=== PATIENT | female | born 1960 | race Two or more races ===

== ENCOUNTER 2024-10-10 12:20 | Inpatient (IN) | payer MEDICAID, OTHER ==
[~2024-10-10] VITALS: Ht 160 cm; Wt 73.4 kg
--- NOTE | 2024-10-10 12:29 | ED.PDOC ---
SOB-HPI HPI Comments 64 y.o female with PMHx of breast cancer and right arm DVT, presents to the ED via EMS for a chief complaint of SOB started started 4 days ago but worsened today. Patient was seen at [facility] [place] recently, was admitted for 12 days due to pleural effusion, had a Thoracentesis, had 2 drainages placed in discharged 2 days ago. Patient reports not feeling better. EMS reports patient's SPO2 read 85% on 4 liters home oxygen, placed her on non rebreather. Patient denies any chest pain, fever, chills, nausea or vomiting. Time Seen by MD: 12:20 Reviewed notes: Nurses Notes, Job Interviewer Notes, Medications, Allergies Information Source: Patient, Emergency Med Personnel Mode of Arrival: EMS Severity: Moderate Timing: Days (4) Duration: Since onset History of: DVT/PE (right arm ) Modifying Factors: Nothing Associated Signs and Symptoms: None Past Medical History PAST MEDICAL HISTORY: Cancer (breast ) Past Medical History (Other): pleura effusion and right arm DVT Surgical History: (3), Tubal Ligation Surgical History (Other): Thoracentesis INSURANCE BROKER History: No Pertinent INSURANCE BROKER History Family History Family History: Unknown Social History Smoker: Non-Smoker Alcohol: Denies ETOH Use Drugs: Denies Drug Use Lives In: Home Constitutional: denies: chills, diaphoresis, fatigue, fever, malaise, sweats, weakness, others EENTM: denies: blurred vision, double vision, ear bleeding, ear discharge, ear drainage, ear pain, ear ringing, eye pain, eye redness, hearing loss, mouth pain, mouth swelling, nasal discharge, nose bleeding, nose congestion, nose pain, photophobia, tearing, throat pain, throat swelling, voice changes, others Respiratory: reports: SOB at rest, shortness of breath, SOB with excertion; denies: cough, hemoptysis, orthopnea, stridor, wheezing, others Cardiovascular: denies: chest pain, dizzy spells, diaphoresis, Dyspnea on exertion, edema, irregular heart beat, left arm pain, lightheadedness, palpitations, PND, syncope, others Gastrointestinal: denies: abdomen distended, abdominal pain, blood streaked bowels, constipated, diarrhea, dysphagia, difficulty swallowing, hematemesis, melena, nausea, poor appetite, poor fluid intake, rectal bleeding, rectal pain, vomiting, others Genitourinary: denies: abnormal vagina bleeding, burning, dyspareunia, dysuria, flank pain, frequency, hematuria, incontinence, pain, , vagina disc harge, urgency, others Neurological: denies: dizziness, fainting, headache, left sided numbness, left sided weakness, numbness, paresthesia, pre-existing deficit, right sided numbness, right sided weakness, seizure, speech problems, tingling, tremors, weakness, others Musculoskeletal: denies: back pain, gout, joint pain, joint swelling, muscle pain, muscle stiffness, neck pain, others Integumetry: denies: bruises, change in color, change in hair/nails, dryness, laceration, lesions, lumps, rash, wounds, others Allergic/Immunocompromised: denies: Difficulty Healing, Frequent Infections, Hives, Itching, others Hematologic/Lymphatic: denies: anemia, blood clots, easy bleeding, easy bruising, swollen glands, others Endocrine: denies: excessive hunger, excessive sweating, excessive thirst, excessive urination, flushing, intolerance to cold, intolerance to heat, unexplained weight gain, unexplained weight loss, others Psychiatric: denies: anxiety, bipolar disorder, depression, hopeless, panic disorder, schizophrenia, sleepless, suicidal, others All Other Systems: Reviewed and Negative Physical Exam General Appearance: Moderate Distress HEENT: Normal ENT Inspection, Pharynx Normal, TMs Normal Neck: Full Range of Motion, Non-Tender, Normal, Normal Inspection Respiratory: Accessory Muscle Use, Chest Non-Tender, Decreased Breath Sounds, Lungs Clear, Respiratory Distress Cardiovascular: No Edema, No JVD, No Murmur, No Gallop, Normal Peripheral Pulses, Regular Rate/Rhythm Breast Exam: Deferred Gastrointestinal: No Organomegaly, Non Tender, No Pulsatile Mass, Normal Bowel Sounds, Soft Genitalia: Deferred Pelvic: Deferred Rectal: Deferred Extremities: No calf tenderness, Normal capillary refill, Normal inspection, Normal range of motion, Non-tender, No pedal edema Musculoskeletal : Apperance: Normal Neurologic: Alert, environmental management specialist II-XII nml as Tested, No Motor Deficits, Normal Affect, Normal Mood, No Sensory Deficits Cerebellar Function: Normal Reflexes: Normal Skin: Dry, Normal Color, Warm Lymphatic: No Adenopathy EKG EKG : Pulse Rate (adult): 97 [place]: Normal Cardiac Rhythm: NSR ST: Normal Was a procedure done? Was a procedure done?: No Differential Dx Differential Diagnosis: Asthma, Bronchitis, COPD, Pneumonia, Pulmonary Embolism, Respiratory Distress, URI X-Ray, Labs, Meds, VS Vital Signs Date Time Temp Pulse Resp B/P (MAP) Pulse Ox O2 Delivery O2 Flow Rate FiO2 10/10/24 16:21 107 18 122/70 (87) 92 10/10/24 13:40 97.9 91 20 95/49 (64) 100 97.9 10/10/24 13:29 Nasal Cannula* 3 32 10/10/24 12:48 97 10/10/24 12:40 97.9 90 40 94/47 (63) 100 10/10/24 12:36 97 Lab Test 10/10/24 14:01 Range/Units White Blood Count 6.4 4.4-10.8 10^3/uL Red Blood Count 4.09 4.0-5.20 10^6/uL Hemoglobin 11.4 L 12.2-16.2 g/dL Hematocrit 36.7 36.0-46.0 % Mean Corpuscular Volume 89.7 80.0-100.0 fL Mean Corpuscular Hemoglobin 27.9 L 28.0-32.0 pg Mean Corpuscular Hemoglobin Concent 31.1 L 32.0-36.0 g/dL Red Cell Distribution Width 15.7 H 11.8-14.3 % Platelet Count 336 140-450 10^3/uL Mean Platelet Volume 8.0 6.9-10.8 fL Neutrophils (%) (Auto) 70.5 37.0-80.0 % Lymphocytes (%) (Auto) 14.0 10.0-50.0 % Monocytes (%) (Auto) 14.1 H 0.0-12.0 % Eosinophils (%) (Auto) 0.7 0.0-7.0 % Basophils (%) (Auto) 0.7 0.0-2.0 % Neutrophils # (Auto) 4.5 1.6-8.6 10 ^3/uL Lymphocytes # (Auto) 0.9 0.4-5.4 10 ^3/uL Monocytes # (Auto) 0.9 0-1.3 10 ^3/uL Eosinophils # (Auto) 0 0-0.8 10 ^3/uL Basophils # (Auto) 0 0-0.2 10 ^3/uL Nucleated Red Blood Cells 0.1 % Sodium Level 143 136-145 mmol/L Potassium Level 4.2 3.5-5.1 mmol/L Chloride Level 106 98-107 mmol/L Carbon Dioxide Level 25 20-31 mmol/L Anion Gap 12 5-15 Blood Urea Nitrogen 23 9-23 mg/dL Creatinine 0.62 0.550-1.02 mg/dL Glomerular Filtration Rate Calc 100 >90 mL/min BUN/Creatinine Ratio 37.1 H 10.0-20.0 Serum Glucose 98 74-106 mg/dL Calcium Level 9.8 8.7-10.4 mg/dL B-Type Natriuretic Peptide 82.79 0-100 pg/mL CHEST RADIOGRAPH IMPRESSION: Multifocal airspace disease. The patient came into the emergency department's with a breathing treatment The CBC is within normal limits The chemistry panel is within normal limits The BNP is within normal limits. At this time, the patient was being admitted Images Reviewed?: Images reviewed and evaluated by me Time of 1ST Reevaluation: 12:24 Reevaluation 1ST: Unchanged Patient Education/Counseling: Diagnosis, Treatment, Prognosis Family Education/Counseling: No Family Present Departure 1 Departure Time of Disposition: 16:25 Impression: Primary Impression: Acute respiratory failure Qualified Codes: J96.01 - Acute respiratory failure with hypoxia Additional Impression: Breast cancer Qualified Codes: C50.919 - Malignant neoplasm of unspecified site of unspecified female breast Disposition: ADMITTED INPATIENT Admit to: [facility] Condition: Fair Critical Care Note Critical Care Time?: Yes (35 min-critical care time only) Stability Stability form required: Yes Unstable for transfer: Telemetry monitoring (Telemetry monitoring required), ED Physician Assesment (Clinical assesment) Heart Score Heart Score: Heart Score Response (Comments) Value History N/A 0 EKG N/A 0 Age N/A 0 Risk Factors N/A 0 Troponin N/A 0 Total 0 I personally scribed for JET GIBBONS MD ([email or web address]) on 10/10/24 at 12:29. Electronically submitted by Rosalva Kirkpatrick ([facility] I personally scribed for JET GIBBONS MD ([email or web address]) on 10/10/24 at 15:52. Electronically submitted by Rosalva Kirkpatrick ([facility]). JET GIBBONS MD Oct 10, 2024 12:29
--- NOTE | 2024-10-10 12:38 | ECG ---
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
--- NOTE | 2024-10-10 12:53 | DVH ---
CHEST RADIOGRAPH Indication: sob Technique: Single frontal view of the chest was obtained COMPARISON: None FINDINGS: Lines and Tubes: Bilateral chest tubes in-situ. Lungs: Multifocal airspace disease. Pleura: Small bilateral pleural effusions. No pneumothorax. Cardiomediastinal contours: Unremarkable Bones: Unremarkable IMPRESSION: Multifocal airspace disease.
[2024-10-10 14:31] LABS: Basophils # (auto) 0 10 ^3/uL (0-0.2); Basophils % (auto) 0.7 % (0.0-2.0); Eosinophils # (auto) 0 10 ^3/uL (0-0.8); Eosinophils % (auto) 0.7 % (0.0-7.0); Hematocrit 36.7 % (36.0-46.0); Hemoglobin 11.4 g/dL (12.2-16.2); Lymphocytes # (auto) 0.9 10 ^3/uL (0.4-5.4); Mean Corpuscular Hemoglobin 27.9 pg (28.0-32.0); Mean Corpuscular Hgb Conc. 31.1 g/dL (32.0-36.0); Mean Corpuscular Volume 89.7 fL (80.0-100.0); Monocytes # (auto) 0.9 10 ^3/uL (0-1.3); Monocytes % (auto) 14.1 % (0.0-12.0); Neutrophils # (auto) 4.5 10 ^3/uL (1.6-8.6); Neutrophils % (auto) 70.5 % (37.0-80.0); Nucleated Red Blood Cells % 0.1 %; Platelet Count (auto) 336 10^3/uL (140-450); Red Blood Cells 4.09 10^6/uL (4.0-5.20); Red Cell Distribution Width 15.7 % (11.8-14.3); White Blood Cell 6.4 10^3/uL (4.4-10.8)
[2024-10-10 14:39] LABS: Chloride 106 mmol/L (98-107); Potassium 4.2 mmol/L (3.5-5.1); Sodium 143 mmol/L (136-145)
[2024-10-10 14:40] LABS: Anion Gap 12 (5-15); Calcium 9.8 mg/dL (8.7-10.4); Carbon Dioxide 25 mmol/L (20-31)
[2024-10-10 14:45] LABS: BUN/Creatinine Ratio 37.1 (10.0-20.0); Blood Urea Nitrogen 23 mg/dL (9-23); Glucose 98 mg/dL (74-106)
[2024-10-10] MEDS ORDERED: MORPHINE SULFATE INJ 2 MG/ml SYRG IV PRN ×2 (17:30)
[2024-10-10] MEDS ORDERED: HYDROcodone-ACET 5/325MG TAB PO PRN (17:30)
[2024-10-10] MEDS ORDERED: NITROGLYCERIN 0.4 MG SL TAB SL PRN (17:30)
[2024-10-10] MEDS ORDERED: DOCUSATE SOD 100 MG CAP PO PRN (17:30)
[2024-10-10] MEDS ORDERED: MIDO10TA10 PO (17:41)
[2024-10-10] MEDS ORDERED: MET25T PO (17:41)
[2024-10-10] MEDS ORDERED: APIX5TAB PO (17:41)
[2024-10-10] MEDS ORDERED: ASPI-628 PO (17:41)
[2024-10-10] MEDS ORDERED: RIBO200T PO (17:41)
[2024-10-10] MEDS: cefTRIAXone 1GM/50ML D5W 50 ML IV ONE (17:54)
[2024-10-10] MEDS: SODIUM CHLORIDE 0.9% 1,000 ML IV ONE (17:56)
--- NOTE | 2024-10-10 17:59 | DVHHP2 ---
History of Present Illness Reason for Visit: Shortness of breath History of Present Illness Aleisha Higgins is a 64-year-old female with past medical history of metastatic breast cancer who is currently undergoing treatment. Patient was hospitalized at [place] for 12 days, she was discharged home on Thursday10/08/2024. While there she had bilateral pleural effusions. She underwent bilateral thoracentesis, the fluid reaccumulated so bilateral pig tail drains were placed. She states after the first thoracentesis she felt better, but after the drains were placed she still feels short of breath. While in the hospital she was diagnosed with a DVT in her right arm and started on blood thinners. She was dis charged home with midodrine and home oxygen. Patient under went radiation therapy to her right breast that has left her scared. The breast cancer has spread to her left breast and bones. She is continuing treatment through Dr. Riaz Garces with oral medications. She came in today due to increasing shortness of breath. She states she was previously able to ambulate to the bathroom, and these past couple of days she becomes so short of breath that she can't make it even with her home oxygen. When EMS arrived her oxygen sats were in the 80's with her oxygen on. Cardiovascular: Other (Tachycardia and hypotension) Heme/Onc: Cancer (metastatic breast cancer), Other (DVT) Endocrine: Hyperthyroidism Past Surgical History: (x 3), Tubal Ligation Smoke: No ALCOHOL: none Drugs: None Lives: with Family Domestic Violence: Neg Review of Systems Constitutional: No: Fever, Chills, Sweats, Weakness, Malaise, Other Eyes: No: Pain, Vision change, Conjunctivae inflammation, Eyelid inflammation, Other, Redness ENT: No: Ear pain, Ear discharge, Nose pain, Nose discharge, Nose congestion, Mouth pain, Mouth swelling, Throat pain, Throat swelling, Other Respiratory: Shortness of breath, SOB with excertion, Wheezing; No: Cough, Dry, Hemoptysis, Pleuritic Pain, Sputum, Wheezing, Other Cardiovascular: No: Chest Pain, Palpitations, Orthopnea, Paroxysmal Noc. Dyspnea, Edema, Lt Headedness, Other Gastrointestinal: No: Nausea, Vomiting, Abdominal Pain, Diarrhea, Constipation, Melena, Hematochezia, Other Genitourinary: No Dysuria, No Frequency, No Incontinence, No Hematuria, No Retention, No Other Musculoskeletal: No: other, neck pain, shoulder pain, arm pain, back pain, hand pain, leg pain, foot pain Skin: No: Rash, Lesions, Jaundice, Bruising, Other Neurological: No: Weakness, Numbness, Incoordination, Change in speech, Confu jermaine, Seizures, Other Allergies: Coded Allergies: NO KNOWN ALLERGIES (Unverified , 10/10/24) Exam Vital Signs Vital Signs Date Time Temp Pulse Resp B/P (MAP) Pulse Ox O2 Delivery O2 Flow Rate FiO2 10/10/24 16:21 107 18 122/70 (87) 92 10/10/24 13:40 97.9 97.9 10/10/24 13:29 Nasal Cannula* 3 32 General Appearance: Alert, Oriented X3, moderate distress HEENT: Atraumatic, PERRLA Respiratory: Other (Diminished breath sounds) Cardiovascular: Regular rate, Normal S1, Normal S2 Abdominal: Normal bowel sounds, Soft, No tenderness, No hepatospenomegaly Extremities: No clubbing, No cyanosis, No edema, Normal pulses Skin: No rashes, No breakdown, No significant lesion Neuro: Normal speech, Normal tone Psych/Mental Status: Mental status NL, Mood NL Labs/Xrays Labs Test 10/10/24 14:01 Range/Units White Blood Count 6.4 4.4-10.8 10^3/uL Red Blood Count 4.09 4.0-5.20 10^6/uL Hemoglobin 11.4 L 12.2-16.2 g/dL Hematocrit 36.7 36.0-46.0 % Mean Corpuscular Volume 89.7 80.0-100.0 fL Mean Corpuscular Hemoglobin 27.9 L 28.0-32.0 pg Mean Corpuscular Hemoglobin Concent 31.1 L 32.0-36.0 g/dL Red Cell Distribution Width 15.7 H 11.8-14.3 % Platelet Count 336 140-450 10^3/uL Mean Platelet Volume 8.0 6.9-10.8 fL Neutrophils (%) (Auto) 70.5 37.0-80.0 % Lymphocytes (%) (Auto) 14.0 10.0-50.0 % Monocytes (%) (Auto) 14.1 H 0.0-12.0 % Eosinophils (%) (Auto) 0.7 0.0-7.0 % Basophils (%) (Auto) 0.7 0.0-2.0 % Neutrophils # (Auto) 4.5 1.6-8.6 10 ^3/uL Lymphocytes # (Auto) 0.9 0.4-5.4 10 ^3/uL Monocytes # (Auto) 0.9 0-1.3 10 ^3/uL Eosinophils # (Auto) 0 0-0.8 10 ^3/uL Basophils # (Auto) 0 0-0.2 10 ^3/uL Nucleated Red Blood Cells 0.1 % Sodium Level 143 136-145 mmol/L Potassium Level 4.2 3.5-5.1 mmol/L Chloride Level 106 98-107 mmol/L Carbon Dioxide Level 25 20-31 mmol/L Anion Gap 12 5-15 Blood Urea Nitrogen 23 9-23 mg/dL Creatinine 0.62 0.550-1.02 mg/dL Glomerular Filtration Rate Calc 100 >90 mL/min BUN/Creatinine Ratio 37.1 H 10.0-20.0 Serum Glucose 98 74-106 mg/dL Calcium Level 9.8 8.7-10.4 mg/dL B-Type Natriuretic Peptide 82.79 0-100 pg/mL CHEST RADIOGRAPH FINDINGS: Lines and Tubes: Bilateral chest tubes in-situ. Lungs: Multifocal airspace disease. Pleura: Small bilateral pleural effusions. No pneumothorax. Cardiomediastinal contours: Unremarkable Bones: Unremarkable IMPRESSION: Multifocal airspace disease. Assessment/Plan Assessment/Plan Assessment: Acute respiratory failure, Possible pneumonia, Tachycardia, Hypotension, Bilateral pleural effusions, Bilateral chest tubes, Metastatic Breast cancer, Plan: Admit to Tele, Radiology consult, IV antibiotics, IV hydration, Influenza A&B swab, Supplemental oxygen as needed, Breathing treatments as needed, Home medications reconciled, Plan discussed with: Patient My Orders Orders - ANDRE OLSON Procedure Category Date Status Time Admit ADMIT 10/10/24 Verified 17:23 Code Status CODE 10/10/24 Verified 17:23 2 Gm Sodium Diet DIET 10/10/24 Verified Dinner Hydrocodone-Acet PHA 10/10/24 Verified 5/325mg Tab ([place] 17:30 Ondansetron Hcl PHA 10/10/24 Verified (Zofran) 17:30 Docusate Sodium PHA 10/10/24 Verified Capsule ([place] 17:30 Fall Risk Precautions СВЕТЛАНА 10/10/[address] 17:23 Complete Blood Count LAB 10/11/24 Verified 04:00 Comprehensive LAB 10/11/24 Verified Metabolic Panel 04:00 Condition: Critical СВЕТЛАНА 10/10/24 Verified 17:23 Acetaminophen Tablet PHA 10/10/24 Verified (Tylenol Tablet) 17:30 Morphine Sulfate PHA 10/10/24 Verified Injection 17:30 Date of Service: Oct 10, 2024 Billing Provider: ANDRE OLSON Common Visit Codes: [id number] INP/OBS CARE (HIGH) ANDRE OLSON Oct 10, 2024 17:59
[2024-10-10 18:21] VITALS: PULSE 111; RESP 20; O2SAT 93
[2024-10-10] MEDS: ALBUTEROL SULF 2.5 MG/0.5ML(0.5%) NEB SOLN NEB PRN (18:21)
[2024-10-10] MEDS: IPRATROPIUM BROM 0.5 MG/2.5ML INH SOL NEB PRN (18:21)
[2024-10-10 18:27] VITALS: PULSE 111; RESP 20; O2SAT 96
[2024-10-10 19:56] VITALS: BP 122/70; PULSE 112; RESP 20; TEMP 97.9; O2SAT 93
[2024-10-10 20:31] LABS: Rapid Influenza A Negative (Negative); Rapid Influenza B Negative (Negative)
[2024-10-10 20:35] LABS: Urine Bacteria FEW /hpf (None Seen); Urine Blood Negative /uL (Negative); Urine Clarity Clear (Clear); Urine Color Yellow (Yellow); Urine Mucus FEW (None Seen); Urine Protein, UAD TRACE (Negative); Urine Specific Gravity 1.029 (1.001-1.035); Urine Squamous Epithelial Cell FEW /hpf (<5); Urine Urobilinogen Normal (Negative); Urine WBC 6 /HPF (0-5); Urine pH 5.5 (5.0-9.0)
[2024-10-10] MEDS: MIDODRINE HCL 10 MG TAB PO SCH (22:00)
[2024-10-10] MEDS: APIXABAN 5 MG TAB PO SCH (22:57)
[2024-10-10] MEDS: ONDANSETRON HCL 4 MG/2 ML VIAL IV PRN (22:58)
[2024-10-10] MEDS: METOPROLOL TARTRATE 25 MG TAB PO SCH (22:58)
[2024-10-10 23:11] VITALS: BP 153/89; PULSE 114; RESP 28; TEMP 97.7; O2SAT 95
[2024-10-11] VITALS (14 sets, daily range): BP systolic 103–141; BP diastolic 63–83; PULSE 95–113; RESP 16–19; TEMP 97.2–97.8; O2SAT 95–100
[2024-10-11 06:37] LABS: Basophils # (auto) 0.1 10 ^3/uL (0-0.2); Eosinophils # (auto) 0.1 10 ^3/uL (0-0.8); Eosinophils % (auto) 1.5 % (0.0-7.0); Hematocrit 31.7 % (36.0-46.0); Hemoglobin 10.3 g/dL (12.2-16.2); Lymphocytes # (auto) 0.5 10 ^3/uL (0.4-5.4); Lymphocytes % (auto) 9.5 % (10.0-50.0); Mean Corpuscular Hemoglobin 28.4 pg (28.0-32.0); Mean Corpuscular Hgb Conc. 32.4 g/dL (32.0-36.0); Mean Corpuscular Volume 87.5 fL (80.0-100.0); Monocytes # (auto) 0.9 10 ^3/uL (0-1.3); Monocytes % (auto) 16.3 % (0.0-12.0); Neutrophils # (auto) 3.9 10 ^3/uL (1.6-8.6); Neutrophils % (auto) 71.7 % (37.0-80.0); Nucleated Red Blood Cells % 0.2 %; Platelet Count (auto) 322 10^3/uL (140-450); Red Blood Cells 3.63 10^6/uL (4.0-5.20); Red Cell Distribution Width 15.5 % (11.8-14.3); White Blood Cell 5.5 10^3/uL (4.4-10.8)
[2024-10-11 06:52] LABS: Alanine Aminotransferase < 9 U/L (7-40); Albumin 3.6 g/dL (3.2-4.8); Alkaline Phosphatase 55 U/L (46-116); Anion Gap 12 (5-15); Aspartate Aminotransferase 30 U/L (13-40); BUN/Creatinine Ratio 35.5 (10.0-20.0); Bilirubin, Total 0.6 mg/dL (0.2-1.0); Blood Urea Nitrogen 22 mg/dL (9-23); Carbon Dioxide 25 mmol/L (20-31); Chloride 104 mmol/L (98-107); Glucose 100 mg/dL (74-106); Potassium 4.2 mmol/L (3.5-5.1); Sodium 141 mmol/L (136-145); Total Protein 6.3 g/dL (5.7-8.2)
--- NOTE | 2024-10-11 07:42 | DVH ---
CLINICAL HISTORY: 64 years old, Female; FLUID CHECK FOR POSSIBLE THORACENTESIS. TECHNIQUE: Grayscale sonographic imaging of the chest was performed to evaluate for pleural effusion s. COMPARISON: None FINDINGS: Bilateral pleural effusions are seen on ultrasound. IMPRESSION: Bilateral pleural effusions are seen on ultrasound.
[2024-10-11] MEDS: cefTRIAXone 1GM/50ML D5W 50 ML IV SCH (08:57)
[2024-10-11] MEDS: ACETAMINOPHEN 325 MG TAB PO PRN (08:58)
[2024-10-11] MEDS: ASPirin-EC 81 mg tab PO SCH (08:58)
[2024-10-11] MEDS: RIBOCICLIB SUCCINATE PO SCH (09:00)
--- NOTE | 2024-10-11 09:24 | DVHPNRES ---
Progress Note Date Seen: Oct 11, 2024 Resident Creating Document: FREDI SEO RESIDENT Medical Necessity Reason Pt with a Central, PICC or Fol: No Subjective Review of Systems Aleisha Higgins is a 64-year-old female with past medical history of metastatic breast cancer who is currently undergoing treatment. Patient was hospitalized at [place] for 12 days, she was discharged home on Thursday10/08/2024. While there she had bilateral pleural effusions. She underwent bilateral thoracentesis, the fluid reaccumulated so bilateral pig tail drains were placed. She states after the first thoracentesis she felt better, but after the drains were placed she still feels short of breath. While in the hospital she was diagnosed with a DVT in her right arm and started on blood thinners. She was discharged home with midodrine and home oxygen. Patient under went radiation therapy to her right breast and the breast cancer has spread to her left breast and bones. She is continuing treatment through Dr. Riaz Garces with oral medications. She came today due to increasing shortness of breath. She states she was previously able to ambulate to the bathroom, and these past couple of days she becomes so short of breath that she can't make it even with her home oxygen. When EMS arrived her oxygen sats were in the 80's with her oxygen on. Patient was seen and examined on the bedside. alert oriented x3 and on 3 L oxygen saturation 98 %. complaint of shortness of breath and cough room for.No other active complaint. chest x-ray and ultrasound of the chest both revealed bilateral pleural effusion. Pleurex drainage was done by bedside nurse and 900 mL fluid removed from the left side. Constitutional: No: Fever, Chills, Sweats, Weakness, Malaise, Other Eyes: No: Pain, Vision change, Conjunctivae inflammation, Eyelid inflammation, Other, Redness ENT: No: Ear pain, Ear discharge, Nose pain, Nose discharge, Nose congestion, Mouth pain, Mouth swelling, Throat pain, Throat swelling, Other Respiratory: Shortness of breath, Cough, No Dry,Wheezing, Hemoptysis, Pleuritic Pain, Sputum, Wheezing, Other Cardiovascular: No: Chest Pain, Palpitations, Orthopnea, Paroxysmal Noc. Dyspnea, Edema, Lt Headedness, Other Gastrointestinal: No: Nausea, Vomiting, Abdominal Pain, Diarrhea, Constipation, Melena, Hematochezia, Other Musculoskeletal: No: other, neck pain, shoulder pain, arm pain, back pain, hand pain, leg pain, foot pain Neurological:; No: Weakness, Numbness, Incoordination, Change in speech, Confusion, Seizures Objective vital signs Vital Sign Date Time Temp Pulse Resp B/P (MAP) Pulse Ox O2 Delivery O2 Flow Rate FiO2 10/11/24 09:00 97.2 103 16 113/68 (83) 96 97.2 10/11/24 06:30 Nasal Cannula 3.0 10/11/24 06:30 32 Total Intake and Output 10/10/24 10/10/24 10/11/24 15:00 23:00 07:00 Intake Total 50 ml 200 ml Balance 50 ml 200 ml medications Current Medications Medications Dose Ordered Sig/Richard Route Start Time Stop Time Status Last Admin Dose Admin Acetaminophen/ Hydrocodone Bitart 1 tab Q4HP PRN PO 10/10/24 17:30 Ondansetron HCl 4 mg Q4HP PRN IV 10/10/24 17:30 10/11/24 04:16 4 MG Docusate Sodium 100 mg BIDPRN PRN PO 10/10/24 17:30 Acetaminophen 650 mg Q6HP PRN PO 10/10/24 17:30 10/11/24 08:58 650 MG Morphine Sulfate 2 mg Q4HPRN PRN IV 10/10/24 17:30 Nitroglycerin 0.4 mg Q5MINP PRN SL 10/10/24 17:30 Morphine Sulfate 2 mg Q30M PRN IV 10/10/24 17:30 Ceftriaxone Sodium 50 ml @ 100 mls/hr DAILY@09 IV 10/11/24 09:00 10/11/24 08:57 100 MLS/HR Apixaban 5 mg BID PO 10/10/24 22:00 10/11/24 08:59 5 MG Aspirin 81 mg DAILY PO 10/11/24 10:00 10/11/24 08:58 81 MG Metoprolol Tartrate 25 mg BID PO 10/10/24 22:00 10/11/24 09:00 25 MG Midodrine 10 mg TID PO 10/10/24 22:00 Patient Own Medication 400 mg DAILY PO 10/11/24 10:00 Ipratropium [place] 0.5 mg Q4HPRN PRN NEB 10/10/24 18:00 10/10/24 18:21 0.5 MG Albuterol 2.5 mg Q4HPRN PRN NEB 10/10/24 18:00 10/10/24 18:21 2.5 MG Examination Physical examination: General Appearance: Alert, Oriented X3, Cooperative, moderate distress HEENT: Atraumatic, PERRLA, EOMI, Mucous membrane moist/pink Respiratory: Decreased breath sound bilaterally. Cardiovascular: Regular rate, Normal S1, Normal S2, No murmurs, no chest wall tenderness Abdominal: Normal bowel sounds, Soft, No tenderness, No hepatospenomegaly, No masses Extremities: No clubbing, No cyanosis, No edema, Normal pulses, No tenderness/swelling Skin: Bilateral bianca d orange and black thickening of the chest skin due to radiation dermatitis, No rashes, No breakdown, No significant lesion Neuro: Normal gait, Normal speech, Strength at 5/5 X4 ext, Normal tone, Sensation intact, grossly intact cranial nerves. Psych/Mental Status: Mental status NL, Mood NL laboratory and microbiology Laboratory Tests 10/11/24 05:54 Test 10/11/24 05:54 Range/Units Serum Glucose 100 74-106 mg/dL Labs and/or images reviewed: Labs reviewed by me, Image(s) reviewed by me Problem List/Assessment/Plan Problem List/Assessment/Plan Assessment and plan: # Acute hypoxic respiratory failure likely due to bilateral malignant pleural effusion # Possible Gram-positive/ Gram-negative community-acquired pneumonia # Metastastatic breast cancer with possible metastasis to lung # Recurrent bilateral malignant pleural effusion, s/p bilateral pig tail drain tube placement. chest x-ray and ultrasound of the chest both revealed bilateral pleural effusion and multifocal airspace disease. - S/P left Pleurex drain of 900 mL - Med neb with albuterol and ipratropium q.4 p.r.n. - IV ceftriaxone 1 g daily and IV azithromycin 500 mg daily # History of DVT of right arm - Continue Eliquis 5 mg p.o. b.i.d. PUD prophylaxis: Pepcid 20 mg po daily. DVT prophylaxis: On Eliquis Code status : Full code Plan discussed with Dr. Smalls Plan discussed with: Patient, Other My Orders My Orders Orders - FREDI SEO RESIDENT Procedure Category Date Status Time C-Reactive Protein LAB 10/11/24 Logged 09:16 Date of Service: Oct 11, 2024 Billing Provider: JESS FONSECA MD Common Visit Codes: [id number] INP/OBS CARE(HIGH) FREDI SEO RESIDENT Oct 11, 2024 09:24 JESS FONSECA MD Oct 16, 2024 23:33
[2024-10-11 09:52] LABS: INR 1.23 (0.9-1.15); Partial Thromboplastin Time 30.7 SEC (24.5-34.5); Prothrombin Time 12.8 sec (9.3-11.8)
[2024-10-11] MEDS ORDERED: LETR2.5T PO (16:14)
[2024-10-11] MEDS: AZITHROMYCIN 500MG/ 250ML 250 ML IV ONE (16:41)
--- NOTE | 2024-10-11 19:27 | DVHINCON2 ---
Date of service: Oct 11, 2024 Referring Physician Rocio Stearns MD Reason for Consultation Acute hypoxic respiratory failure, recurrent bilateral pleural effusions History of Present Illness A 64-year-old woman with past medical history of metastatic breast cancer, currently undergoing treatment, and hyperthyroidism who presented to ED on 10/10/24 for evaluation of shortness of breath. Patient was hospitalized at [facility] for 12 days and discharged home on Thursday (10/08/2024). While there she had bilateral pleural effusions, underwent bilateral thoracenteses but fluid reaccumulated and bilateral pigtail drains were placed. She states after the first thoracentesis she felt better, but after the drains were placed she still feels short of breath. While in the hospital she was diagnosed with a DVT in her right arm and started on blood thinners. She was discharged home with midodrine and home oxygen. Patient underwent radiation therapy to her right breast that has left her scarred. The breast cancer has spread to her left breast and bones. She is continuing treatment through Dr. Riaz Garces with oral medications. Patient reported increasing shortness of breath; was previously able to ambulate to the bathroom, but in the past couple of days unable to do so even with her home oxygen d/t SOB. When EMS arrived her oxygen sats were in the 80's with her oxygen on. She was admitted for further care and pulmonary consultation is requ ested for evaluation and management d/t the above findings. Review of Systems: 14-point review of systems negative unless otherwise noted above. Past Medical History: Metastatic breast cancer, currently undergoing treatment. Hyperthyroidism. Recent DVT, right arm. Other (Tachycardia and hypotension) Past Surgical History: (x 3), Tubal Ligation Medications: Reviewed. Allergies: No known drug allergies. Family History: Cardiovascular disease Colon cancer Emphysema. Social History: Nonsmoker. No alcohol or illicit drug use. Family History: Cardiovascular disease G8 FATHER Colon cancer G8 SISTER FHx: emphysema G8 MOTHER Allergies: Coded Allergies: NO KNOWN ALLERGIES (Unverified , 10/10/24) Home Meds Reported Medications Letrozole (Femara) 2.5 Mg Tab, 2.5 MG PO DAILY, TAB 10/11/24 Ribociclib Succinate (Kisqali) 200 Mg Tab, 400 MG PO DAILY 10/10/24 Apixaban Base (ELIQUIS) 5 Mg Tab, 1 TAB PO BID 10/10/24 Aspirin (Aspirin Adult Low Dose) 81 Mg Tab, 1 TAB PO DAILY 10/10/24 Midodrine HCl (Midodrine Hydrochloride) 10 Mg Tab, 1 TAB PO TID 10/10/24 Metoprolol Tartrate (Lopressor) 25 Mg Tb, 1 TAB PO BID 10/10/24 Current Medications Current Medications Medications (Trade) Dose Ordered Sig/Richard Route PRN Reason Start Time Stop Time Status Last Admin Ceftriaxone Sodium 50 ml @ 100 mls/hr DAILY@09 IV 10/11/24 09:00 10/11/24 08:57 Apixaban (Eliquis) 5 mg BID PO 10/10/24 22:00 10/11/24 08:59 Aspirin (Ecotrin Enteric Coated Tablet) 81 mg DAILY PO 10/11/24 10:00 10/11/24 08:58 Metoprolol Tartrate (Lopressor Tablet) 25 mg BID PO 10/10/24 22:00 10/11/24 09:00 Midodrine (Proamatine Tablet) 10 mg TID PO 10/10/24 22:00 10/11/24 14:57 Patient Own Medication 400 mg DAILY PO 10/11/24 10:00 Azithromycin 250 ml @ 125 mls/hr DAILY IV 10/12/24 10:00 Famotidine (Pepcid Tablet) 20 mg DAILY PO 10/12/24 10:00 Vital Signs Vital Signs Date Time Temp Pulse Resp B/P (MAP) Pulse Ox O2 Delivery O2 Flow Rate FiO2 10/11/24 17:00 97.4 102 19 112/70 (84) 98 97.4 10/11/24 13:27 Nasal Cannula 3.0 10/11/24 13:27 32 Physical Exam Gen.: Patient lying in bed in no apparent distress. On supplemental oxygen. Head: Normocephalic, atraumatic. Eyes: EOMI/PERRLA. Ears: Normal hearing. Normal anatomy. Neck/trachea: Trachea midline, supple. Nose: Normal external anatomy. Mouth: Moist mucous membranes. Chest: Decreased air entry bilaterally. No wheezing or rhonchi. Cardiovascular: Positive S1, positive S2. Regular rate and rhythm. Abdomen: Positive bowel sounds in all 4 quadrants. Soft, non-tender, non- distended. : Deferred. Rectal: Deferred. Skin: Warm, dry. Intact. Extremities: 2+ radial pulses bilaterally. No lower extremity edema. Neuro: Awake, alert, oriented x3. No gross motor or sensory deficits. Cranial nerves II through XII intact. Gait not assessed. Labs/Diagnostic Data Labs Test 10/11/24 05:54 10/10/24 20:11 10/10/24 14:01 Range/Units White Blood Count 5.5 4.4-10.8 10^3/uL Red Blood Count 3.63 L 4.0-5.20 10^6/uL Hemoglobin 10.3 L 12.2-16.2 g/dL Hematocrit 31.7 #L 36.0-46.0 % Mean Corpuscular Volume 87.5 80.0-100.0 fL Mean Corpuscular Hemoglobin 28.4 28.0-32.0 pg Mean Corpuscular Hemoglobin Concent 32.4 32.0-36.0 g/dL Red Cell Distribution Width 15.5 H 11.8-14.3 % Platelet Count 322 140-450 10^3/uL Mean Platelet Volume 7.6 6.9-10.8 fL Neutrophils (%) (Auto) 71.7 37.0-80.0 % Lymphocytes (%) (Auto) 9.5 L 10.0-50.0 % Monocytes (%) (Auto) 16.3 H 0.0-12.0 % Eosinophils (%) (Auto) 1.5 0.0-7.0 % Basophils (%) (Auto) 1.0 0.0-2.0 % Neutrophils # (Auto) 3.9 1.6-8.6 10 ^3/uL Lymphocytes # (Auto) 0.5 0.4-5.4 10 ^3/uL Monocytes # (Auto) 0.9 0-1.3 10 ^3/uL Eosinophils # (Auto) 0.1 0-0.8 10 ^3/uL Basophils # (Auto) 0.1 0-0.2 10 ^3/uL Nucleated Red Blood Cells 0.2 % Prothrombin Time 12.8 H 9.3-11.8 sec Prothrombin Time INR 1.23 H 0.9-1.15 Activated Partial Thromboplast Time 30.7 24.5-34.5 SEC Sodium Level 141 136-145 mmol/L Potassium Level 4.2 3.5-5.1 mmol/L Chloride Level 104 98-107 mmol/L Carbon Dioxide Level 25 20-31 mmol/L Anion Gap 12 5-15 Blood Urea Nitrogen 22 9-23 mg/dL Creatinine 0.62 0.550-1.02 mg/dL Glomerular Filtration Rate Calc 100 >90 mL/min BUN/Creatinine Ratio 35.5 H 10.0-20.0 Serum Glucose 100 74-106 mg/dL Calcium Level 10.0 8.7-10.4 mg/dL Total Bilirubin 0.6 0.2-1.0 mg/dL Aspartate Amino Transferase (AST) 30 13-40 U/L Alanine Aminotransferase (ALT) < 9 7-40 U/L Alkaline Phosphatase 55 46-116 U/L C-Reactive Protein High Sensitivity 5.75 H <1.0 mg/dL Total Protein 6.3 5.7-8.2 g/dL Albumin 3.6 3.2-4.8 g/dL Urine Color Yellow Yellow Urine Clarity Clear Clear Urine pH 5.5 5.0-9.0 Urine Specific [place] 1.029 1.001-1.035 Urine Protein Trace H Negative Urine Ketones 1+ H Negative Urine Blood Negative Negative /uL Urine Nitrite Negative Negative Urine Bilirubin Negative Negative Urine Urobilinogen Normal Negative mg/dL Urine Leukocyte Esterase Trace Negative /uL Urine RBC 1 0 - 4 /hpf Urine Microscopic WBC 6 H 0-5 /HPF Urine Squamous Epithelial Cells Few <5 /hpf Urine Bacteria Few H None Seen /hpf Urine Mucus Few None Seen Urine Glucose Normal Normal mg/dL Influenza Type A Antigen Negative Negative Influenza Type B Antigen Negative Negative B-Type Natriuretic Peptide 82.79 0-100 pg/mL Microbiology Date/Time Source Procedure Growth Status 10/11/24 01:00 Nose MRSA Screen - Final Complete Assessment Impression: Acute hypoxic respiratory failure Dependence on supplemental oxygen Recurrent bilateral malignant pleural effusions Atelectasis Possible pneumonia Metastatic breast cancer History of DVT Plan: Supplemental oxygen Titrate to keep O2 sats above 92%. CXR on 10/10/24 reveals multifocal airspace disease, small bilateral pleural effusions. No pneumothorax. Chest ultrasound demonstrates bilateral pleural effusions. S/p bilateral chest tubes. Continue bronchodilators. Continue antibiotics Incentive spirometry Drain PleurX catheters on every other day schedule. Pt requests for PleurX catheters to be removed. She states they are causing her pain and discomfort She is aware of risks and benefits. Monitor renal function. Monitor electrolytes. Supplement as necessary. Monitor ins and outs. DVT prophylaxis. Prognosis: Poor given patient's multiple co-morbidities. Rest of plan per hospitalist and other consultants. Thank you, Dr. Stearns, for allowing me to participate in this patient's care. Further recommendations will depend on the patient's clinical course. Please do not hesitate to contact me if you have any questions or concerns. This medical document was created using an electronic medical record system with [employer] dictation system. Although these documentations are being carefully reviewed, there may still be some phonetic and typographical changes. The errors are purely typographical, due to imperfection on the software program, and do not reflect any compromise in the patient's medical care. Plan discussed with: Patient, Other (NADEGE Law/Dr. Stearns) LOPEZ BRAXTON MD Oct 11, 2024 19:27
[2024-10-12] VITALS (12 sets, daily range): BP systolic 108–122; BP diastolic 63–98; PULSE 93–110; RESP 18–20; TEMP 97.1–98.7; O2SAT 96–99
[2024-10-12 06:38] LABS: Basophils # (auto) 0.1 10 ^3/uL (0-0.2); Basophils % (auto) 1.3 % (0.0-2.0); Eosinophils # (auto) 0.1 10 ^3/uL (0-0.8); Eosinophils % (auto) 2.4 % (0.0-7.0); Hemoglobin 10.8 g/dL (12.2-16.2); Lymphocytes # (auto) 0.6 10 ^3/uL (0.4-5.4); Lymphocytes % (auto) 10.8 % (10.0-50.0); Mean Corpuscular Hemoglobin 27.6 pg (28.0-32.0); Mean Corpuscular Hgb Conc. 31.6 g/dL (32.0-36.0); Mean Corpuscular Volume 87.3 fL (80.0-100.0); Monocytes # (auto) 0.7 10 ^3/uL (0-1.3); Monocytes % (auto) 11.6 % (0.0-12.0); Neutrophils # (auto) 4.4 10 ^3/uL (1.6-8.6); Neutrophils % (auto) 73.9 % (37.0-80.0); Nucleated Red Blood Cells % 0.1 %; Platelet Count (auto) 307 10^3/uL (140-450); Red Cell Distribution Width 15.2 % (11.8-14.3); White Blood Cell 5.9 10^3/uL (4.4-10.8)
[2024-10-12 07:07] LABS: Alkaline Phosphatase 57 U/L (46-116); Anion Gap 10 (5-15); Calcium 9.9 mg/dL (8.7-10.4); Carbon Dioxide 26 mmol/L (20-31); Chloride 103 mmol/L (98-107); Potassium 4.4 mmol/L (3.5-5.1); Sodium 139 mmol/L (136-145)
[2024-10-12 07:09] LABS: Alanine Aminotransferase < 9 U/L (7-40)
[2024-10-12 07:11] LABS: BUN/Creatinine Ratio 34.7 (10.0-20.0); Glucose 101 mg/dL (74-106)
[2024-10-12 07:12] LABS: Blood Urea Nitrogen 25 mg/dL (9-23); Total Protein 6.4 g/dL (5.7-8.2)
[2024-10-12 07:13] LABS: Albumin 3.6 g/dL (3.2-4.8); Aspartate Aminotransferase 33 U/L (13-40); Bilirubin, Total 0.6 mg/dL (0.2-1.0)
[2024-10-12] MEDS: FAMOTIDINE 20 MG TAB PO SCH (09:00)
[2024-10-12] MEDS: AZITHROMYCIN 500MG/ 250ML 250 ML IV SCH (10:41)
--- NOTE | 2024-10-12 12:17 | DVH ---
INDICATION: Bilateral pleural effusion TECHNIQUE: Frontal view of the chest. COMPARISON: XY CHEST PORTABLE on DOS: 10/10/24 FINDINGS: Right pleurX catheter is present. Moderate right pneumothorax. Left PleurX catheter. Moderate left p leural effusion. Multifocal airspace opacities. IMPRESSION: Right pleurX catheter is present. Moderate right pneumothorax. Left PleurX catheter. Moderate left pleural effusion. Multifocal airspace opacities.
--- NOTE | 2024-10-12 14:30 | DVH ---
CHEST RADIOGRAPH Indication: Bilateral recurrent pleural effusion Technique: Frontal view of the chest. Comparison: XY CHEST PORTABLE on DOS: 10/12/24, XY CHEST PORTABLE on DOS: 10/10/24, XY CHEST PORTABLE o n DOS: 10/12/24 FINDINGS: Right pleurX catheter is present. Moderate right pneumothorax. Left PleurX catheter. Moderate left p leural effusion. Multifocal airspace opacities. IMPRESSION: Right pleurX catheter is present. Decreased right pneumothorax. Left PleurX catheter. Moderate left pleural effusion. Multifocal airspace opacities.
--- NOTE | 2024-10-12 16:05 | DVH ---
EXAM: CT CHEST WITHOUT CONTRAST History: rule out pneumothorax Comparison Study: US CHEST ULTRASOUND on DOS: 10/11/24 TECHNIQUE: Multidetector CT of the chest was performed. Imaging was performed without IV contrast. Ax ial, coronal, and sagittal multiplanar reformats were obtained from the axial data set by the technol cortney. Radiation Dose : CTDI vol 17.82 mGy, DLP 657.54 mGy*cm. Findings: Lungs: Bilateral upper lobe solid and ground-glass nodular opacities. Bilateral lower lobe atelectasi s. Pleura: Unremarkable Heart/Great vessels: No cardiomegaly or pericardial effusion. Mediastinum: Unremarkable Soft tissues/Bones: Mild multilevel degenerative changes of the thoracic spine. Bilateral posterior a pproach chest. The left chest tube terminates in the left lung base within the small to moderate-siz ed effusion. The right chest tube terminates in the right lung base within a small pleural effusion a nd a small right basilar pneumothorax. Bilateral breast skin thickening and nodular parenchyma. The partially visualized upper abdomen is within normal limits. Impression: 1. Bilateral upper lobe solid and ground-glass nodular opacities favored infectious/inflammatory etio logy. 2. Right chest tube terminates in the right lung base with a small pleural effusion and a small right basilar pneumothorax. 3. Left chest tube terminates in the left lower lung base within a small to moderate effusion. 4. Bilateral breast skin thickening and nodular parenchyma. Recommend correlation with mammography. Critical Result: Pneumothorax Findings discussed with Emelia LIGHT at 10/12/2024 03:44 PM, and acknowledged receipt and understanding o f the findings.
--- NOTE | 2024-10-12 16:58 | DVHPNRES ---
Progress Note Date Seen: Oct 12, 2024 Resident Creating Document: FREDI SEO RESIDENT Medical Necessity Reason Pt with a Central, PICC or Fol: No Subjective Review of Systems Patient was seen and examined on the bedside. She is alert oriented x3 and on 3 L oxygen saturation 97%. The patient underwent right-sided routine thoracentesis through right PleurX drain and 700 mL fluid was removed. Patient's vital was stable after thoracentesis. Follow up chest x-ray revealed moderate right sided pneumothorax. CT chest without contrast revealed small right basilar pneumothorax. Objective vital signs Vital Sign Date Time Temp Pulse Resp B/P (MAP) Pulse Ox O2 Delivery O2 Flow Rate FiO2 10/12/24 13:00 98.2 93 18 108/66 (80) 96 98.2 10/12/24 10:00 Nasal Cannula* 3 32 Total Intake and Output 10/11/24 10/11/24 10/12/24 15:00 23:00 07:00 Intake Total 50 ml 700 ml 200 ml Balance 50 ml 700 ml 200 ml medications Current Medications Medications Dose Ordered Sig/Richard Route Start Time Stop Time Status Last Admin Dose Admin Acetaminophen/ Hydrocodone Bitart 1 tab Q4HP PRN PO 10/10/24 17:30 Ondansetron HCl 4 mg Q4HP PRN IV 10/10/24 17:30 10/11/24 12:56 4 MG Docusate Sodium 100 mg BIDPRN PRN PO 10/10/24 17:30 Acetaminophen 650 mg Q6HP PRN PO 10/10/24 17:30 10/11/24 20:05 650 MG Morphine Sulfate 2 mg Q4HPRN PRN IV 10/10/24 17:30 Nitroglycerin 0.4 mg Q5MINP PRN SL 10/10/24 17:30 Morphine Sulfate 2 mg Q30M PRN IV 10/10/24 17:30 Ceftriaxone Sodium 50 ml @ 100 mls/hr DAILY@09 IV 10/11/24 09:00 10/12/24 09:02 100 MLS/HR Apixaban 5 mg BID PO 10/10/24 22:00 10/12/24 09:01 5 MG Aspirin 81 mg DAILY PO 10/11/24 10:00 10/12/24 09:02 81 MG Metoprolol Tartrate 25 mg BID PO 10/10/24 22:00 10/12/24 09:02 25 MG Midodrine 10 mg TID PO 10/10/24 22:00 10/12/24 14:01 10 MG Patient Own Medication 400 mg DAILY PO 10/11/24 10:00 10/12/24 13:06 400 MG Ipratropium [place] 0.5 mg Q4HPRN PRN NEB 10/10/24 18:00 10/11/24 19:24 0.5 MG Albuterol 2.5 mg Q4HPRN PRN NEB 10/10/24 18:00 10/11/24 19:24 2.5 MG Azithromycin 250 ml @ 125 mls/hr DAILY IV 10/12/24 10:00 10/12/24 10:41 125 MLS/HR Famotidine 20 mg DAILY PO 10/12/24 10:00 10/12/24 09:00 20 MG Examination Physical examination: General Appearance: Alert, Oriented X3, Cooperative, mild distress HEENT: Atraumatic, PERRLA, EOMI, Mucous membrane moist/pink Respiratory: Decreased breath sound bilaterally. Cardiovascular: Regular rate, Normal S1, Normal S2, No murmurs, no chest wall tenderness Abdominal: Normal bowel sounds, Soft, No tenderness, No hepatospenomegaly, No masses Extremities: No clubbing, No cyanosis, No edema, Normal pulses, No tenderness/swelling Skin: No rashes, No breakdown, No significant lesion Neuro: Normal gait, Normal speech, Strength at 5/5 X4 ext, Normal tone, Sensation intact, Cranial nerves 3-12 NL, Reflexes 2+ Psych/Mental Status: Mental status NL, Mood NL laboratory and microbiology Laboratory Tests 10/12/24 05:42 Test 10/12/24 05:42 Range/Units Serum Glucose 101 74-106 mg/dL Microbiology Date/Time Source Procedure Growth Status 10/11/24 01:00 Nose MRSA Screen - Final Complete Labs and/or images reviewed: Labs reviewed by me, Image(s) reviewed by me Problem List/Assessment/Plan Problem List/Assessment/Plan Assessment and plan: # Acute hypoxic respiratory failure likely due to bilateral malignant pleural effusion # Possible Gram-positive/ Gram-negative community-acquired pneumonia # Metastastatic breast cancer with possible metastasis to lung # Recurrent bilateral malignant pleural effusion, s/p bilateral pig tail drain tube placement. chest x-ray and ultrasound of the chest both revealed bilateral pleural effusion and multifocal airspace disease. - S/P left Pleurex drain of 900 mL - S/P Rt pleurex drain 700 ml - Med neb with albuterol and ipratropium q.4 p.r.n. - IV ceftriaxone 1 g daily and IV azithromycin 500 mg daily - F/U chest x-ray revealed moderate right pneumothorax - CT chest without contrast revealed small right basilar pneumothorax # History of DVT of right arm - Continue Eliquis 5 mg p.o. b.i.d. PUD prophylaxis: Pepcid 20 mg po daily. DVT prophylaxis: On Eliquis Code status : Full code Plan discussed with Dr. Smalls Plan discussed with: Patient, Other My Orders My Orders Orders - FREDI SEO Procedure Category Date Status Time C-Diff: Collect Next СВЕТЛАНА 10/11/24 In Process Specimen 21:37 * Dietary Consult CONS 10/12/24 Transmitted 01:11 * Radiologist Consult CONS 10/12/24 Transmitted 09:27 Chest Portable XY 10/12/24 Resulted 09:36 Discontinue Tele СВЕТЛАНА 10/12/24 In Process 11:28 Transfer Orders XFER 10/12/24 Transmitted 11:28 Chest Xray 1 View XY 10/12/24 Resulted 13:[address] 10/12/24 Resulted 13:48 Date of Service: Oct 12, 2024 Billing Provider: JESS FONSECA MD Common Visit Codes: [id number] INP/OBS CARE(HIGH) FREDI SEO RESIDENT Oct 12, 2024 16:58 JESS FONSECA MD Oct 16, 2024 23:43
--- NOTE | 2024-10-12 21:00 | DVHPN2 ---
Progress Note - Dictate Date Seen: Oct 12, 2024 Medical Necessity Reason Pt with a Central, PICC or Fol: No Subjective Patient seen and examined at bedside. Remains on supplemental oxygen Overnight events reviewed. vital signs Vital Sign Date Time Temp Pulse Resp B/P (MAP) Pulse Ox O2 Delivery O2 Flow Rate FiO2 10/12/24 20:10 98 Nasal Cannula* 3 32 10/12/24 17:00 97.9 97 18 122/67 (85) 97.9 Total Intake and Output 10/11/24 10/11/24 10/12/24 15:00 23:00 07:00 Intake Total 50 ml 700 ml 200 ml Balance 50 ml 700 ml 200 ml medications Current Medications Medications Dose Ordered Sig/Richard Route Start Time Stop Time Status Last Admin Dose Admin Acetaminophen/ Hydrocodone Bitart 1 tab Q4HP PRN PO 10/10/24 17:30 Ondansetron HCl 4 mg Q4HP PRN IV 10/10/24 17:30 10/11/24 12:56 4 MG Docusate Sodium 100 mg BIDPRN PRN PO 10/10/24 17:30 Acetaminophen 650 mg Q6HP PRN PO 10/10/24 17:30 10/11/24 20:05 650 MG Morphine Sulfate 2 mg Q4HPRN PRN IV 10/10/24 17:30 Nitroglycerin 0.4 mg Q5MINP PRN SL 10/10/24 17:30 Morphine Sulfate 2 mg Q30M PRN IV 10/10/24 17:30 Ceftriaxone Sodium 50 ml @ 100 mls/hr DAILY@09 IV 10/11/24 09:00 10/12/24 09:02 100 MLS/HR Apixaban 5 mg BID PO 10/10/24 22:00 10/12/24 09:01 5 MG Aspirin 81 mg DAILY PO 10/11/24 10:00 10/12/24 09:02 81 MG Metoprolol Tartrate 25 mg BID PO 10/10/24 22:00 10/12/24 09:02 25 MG Midodrine 10 mg TID PO 10/10/24 22:00 10/12/24 14:01 10 MG Patient Own Medication 400 mg DAILY PO 10/11/24 10:00 10/12/24 13:06 400 MG Ipratropium [place] 0.5 mg Q4HPRN PRN NEB 10/10/24 18:00 10/11/24 19:24 0.5 MG Albuterol 2.5 mg Q4HPRN PRN NEB 10/10/24 18:00 10/11/24 19:24 2.5 MG Azithromycin 250 ml @ 125 mls/hr DAILY IV 10/12/24 10:00 10/12/24 10:41 125 MLS/HR Famotidine 20 mg DAILY PO 10/12/24 10:00 10/12/24 09:00 20 MG objective Gen.: Patient lying in bed in no apparent distress. On supplemental oxygen. Head: Normocephalic, atraumatic. Eyes: EOMI/PERRLA. Ears: Normal hearing. Normal anatomy. Neck/trachea: Trachea midline, supple. Nose: Normal external anatomy. Mouth: Moist mucous membranes. Chest: Decreased air entry bilaterally. No wheezing or rhonchi. Cardiovascular: Positive S1, positive S2. Regular rate and rhythm. Abdomen: Positive bowel sounds in all 4 quadrants. Soft, non-tender, non- distended. : Deferred. Rectal: Deferred. Skin: Warm, dry. Intact. Extremities: 2+ radial pulses bilaterally. No lower extremity edema. Neuro: Awake, alert, oriented x3. No gross motor or sensory deficits. Cranial nerves II through XII intact. Gait not assessed. laboratory and microbiology Laboratory Tests 10/12/24 05:42 Test 10/12/24 05:42 Range/Units Serum Glucose 101 74-106 mg/dL Assessment/Plan Impression: Acute hypoxic respiratory failure Dependence on supplemental oxygen Recurrent bilateral malignant pleural effusions Atelectasis Possible pneumonia Metastatic breast cancer History of DVT Events: Remains on supplemental oxygen, 3 LPM NC Taper O2 as tolerated Drained right PleurX catheter today with 700 mL output Drained left PleurX catheter w/ [address] chest reviewed, notable for bilateral upper lobe solid and ground-glass nodular opacities. Bilateral lower lobe atelectasis. PleurX catheters in place.with small to moderate-size effusion on left; small pleural effusion and small right basilar pneumothorax on right. CXR reviewed; demonstrates PleurX catheters in place. Decreased right pneumothorax. Moderate left pleural effusion. Multifocal airspace opacities. Continue bronchodilators Continue antibiotics Incentive spirometry On Eliquis for DVT prophylaxis. Labs and imaging reviewed. Rest of plan as noted below. Plan: Supplemental oxygen Titrate to keep O2 sats above 92%. CXR on 10/10/24 reveals multifocal airspace disease, small bilateral pleural effusions. No pneumothorax. Chest ultrasound demonstrates bilateral pleural effusions. S/p bilateral chest tubes. Continue bronchodilators. Continue antibiotics Incentive spirometry Drain PleurX catheters on every other day schedule. Pt requests for PleurX catheters to be removed. She states they are causing her pain and discomfort She is aware of risks and benefits. Monitor renal function. Monitor electrolytes. Supplement as necessary. Monitor ins and outs. DVT prophylaxis. Prognosis: Poor given patient's multiple co-morbidities. Rest of plan per hospitalist and other consultants. Thank you, Dr. Stearns, for allowing me to participate in this patient's care. Further recommendations will depend on the patient's clinical course. Please do not hesitate to contact me if you have any questions or concerns. This medical document was created using an electronic medical record system with [employer] computerized dictation system. Although these documentations are being carefully reviewed, there may still be some phonetic and typographical changes. The errors are purely typographical, due to imperfection on the software program, and do not reflect any compromise in the patient's medical care. Plan discussed with: Patient, Other (NADEGE Kapoor) LOPEZ BRAXTON MD Oct 12, 2024 21:00
[2024-10-13] VITALS (7 sets, daily range): BP systolic 111–118; BP diastolic 63–72; PULSE 90–101; RESP 16–20; TEMP 98.1–98.6; O2SAT 97–100
[2024-10-13 05:55] LABS: Basophils # (auto) 0.1 10 ^3/uL (0-0.2); Basophils % (auto) 1.2 % (0.0-2.0); Eosinophils # (auto) 0.1 10 ^3/uL (0-0.8); Eosinophils % (auto) 2.2 % (0.0-7.0); Hemoglobin 10.1 g/dL (12.2-16.2); Lymphocytes # (auto) 0.6 10 ^3/uL (0.4-5.4); Lymphocytes % (auto) 10.6 % (10.0-50.0); Mean Corpuscular Hemoglobin 27.7 pg (28.0-32.0); Mean Corpuscular Hgb Conc. 31.7 g/dL (32.0-36.0); Mean Corpuscular Volume 87.2 fL (80.0-100.0); Monocytes # (auto) 0.6 10 ^3/uL (0-1.3); Monocytes % (auto) 9.8 % (0.0-12.0); Neutrophils # (auto) 4.4 10 ^3/uL (1.6-8.6); Neutrophils % (auto) 76.2 % (37.0-80.0); Nucleated Red Blood Cells % 0.1 %; Platelet Count (auto) 292 10^3/uL (140-450); Red Blood Cells 3.67 10^6/uL (4.0-5.20); Red Cell Distribution Width 15.5 % (11.8-14.3); White Blood Cell 5.7 10^3/uL (4.4-10.8)
[2024-10-13 06:09] LABS: Chloride 102 mmol/L (98-107); Potassium 4.2 mmol/L (3.5-5.1); Sodium 137 mmol/L (136-145)
[2024-10-13 06:10] LABS: Anion Gap 9 (5-15); Calcium 9.8 mg/dL (8.7-10.4); Carbon Dioxide 26 mmol/L (20-31)
[2024-10-13 06:15] LABS: BUN/Creatinine Ratio 32.8 (10.0-20.0); Blood Urea Nitrogen 20 mg/dL (9-23)
[2024-10-13 06:24] LABS: Glucose 107 mg/dL (74-106)
--- NOTE | 2024-10-13 08:36 | DVH ---
CHEST RADIOGRAPH Indication: pneumothorax Technique: Single frontal view of the chest was obtained Comparison: XY CHEST XRAY 1 VIEW on DOS: 10/12/24, XY CHEST PORTABLE on DOS: 10/12/24, XY CHEST PORTABL E on DOS: 10/10/24 FINDINGS: Lines and Tubes: Bilateral PleurX catheters are present. Lungs: Increased interstitial opacities Pleura: Small bilateral pleural effusions No pneumothorax. Cardiomediastinal contours: Unremarkable Bones: No acute osseous abnormality. IMPRESSION: Significantly decreased pleural effusions. Stable pulmonary edema. Resolution of the pneumothorax.
--- NOTE | 2024-10-13 11:06 | DVHDSRES ---
Discharge Summary Date of Admission Resident Creating Document: FREDI SEO RESIDENT Oct 10, 2024 at 17:23 Date of Discharge: Oct 13, 2024 Admitting Diagnosis Acute on chronic hypoxic respiratory failure likely due to bilateral malignant pleural effusion Wounds: No wound was present Labs/Diagnostic Data: Laboratory Results Test 10/13/24 05:31 10/12/24 05:42 10/11/24 05:54 10/10/24 20:11 White Blood Count 5.7 10^3/uL (4.4-10.8) Red Blood Count 3.67 10^6/uL (4.0-5.20) Hemoglobin 10.1 g/dL (12.2-16.2) Hematocrit 32.0 % (36.0-46.0) Mean Corpuscular Volume 87.2 fL (80.0-100.0) Mean Corpuscular Hemoglobin 27.7 pg (28.0-32.0) Mean Corpuscular Hemoglobin Concent 31.7 g/dL (32.0-36.0) Red Cell Distribution Width 15.5 % (11.8-14.3) Platelet Count 292 10^3/uL (140-450) Mean Platelet Volume 8.1 fL (6.9-10.8) Neutrophils (%) (Auto) 76.2 % (37.0-80.0) Lymphocytes (%) (Auto) 10.6 % (10.0-50.0) Monocytes (%) (Auto) 9.8 % (0.0-12.0) Eosinophils (%) (Auto) 2.2 % (0.0-7.0) Basophils (%) (Auto) 1.2 % (0.0-2.0) Neutrophils # (Auto) 4.4 10 ^3/uL (1.6-8.6) Lymphocytes # (Auto) 0.6 10 ^3/uL (0.4-5.4) Monocytes # (Auto) 0.6 10 ^3/uL (0-1.3) Eosinophils # (Auto) 0.1 10 ^3/uL (0-0.8) Basophils # (Auto) 0.1 10 ^3/uL (0-0.2) Nucleated Red Blood Cells 0.1 % Sodium Level 137 mmol/L (136-145) Potassium Level 4.2 mmol/L (3.5-5.1) Chloride Level 102 mmol/L (98-107) Carbon Dioxide Level 26 mmol/L (20-31) Anion Gap 9 (5-15) Blood Urea Nitrogen 20 mg/dL (9-23) Creatinine 0.61 mg/dL (0.550-1.02) Glomerular Filtration Rate Calc 100 mL/min (>90) BUN/Creatinine Ratio 32.8 (10.0-20.0) Serum Glucose 107 mg/dL (74-106) Calcium Level 9.8 mg/dL (8.7-10.4) Total Bilirubin 0.6 mg/dL (0.2-1.0) Aspartate Amino Transferase (AST) 33 U/L (13-40) Alanine Aminotransferase (ALT) < 9 U/L (7-40) Alkaline Phosphatase 57 U/L (46-116) Total Protein 6.4 g/dL (5.7-8.2) Albumin 3.6 g/dL (3.2-4.8) Prothrombin Time 12.8 sec (9.3-11.8) Prothrombin Time INR 1.23 (0.9-1.15) Activated Partial Thromboplast Time 30.7 SEC (24.5-34.5) C-Reactive Protein High Sensitivity 5.75 mg/dL (<1.0) Urine Color Yellow (Yellow) Urine Clarity Clear (Clear) Urine pH 5.5 (5.0-9.0) Urine Specific [place] 1.029 (1.001-1.035) Urine Protein Trace (Negative) Urine Ketones 1+ (Negative) Urine Blood Negative /uL (Negative) Urine Nitrite Negative (Negative) Urine Bilirubin Negative (Negative) Urine Urobilinogen Normal mg/dL (Negative) Urine Leukocyte Esterase Trace /uL (Negative) Urine RBC 1 /hpf (0 - 4) Urine Microscopic WBC 6 /HPF (0-5) Urine Squamous Epithelial Cells Few /hpf (<5) Urine Bacteria Few /hpf (None Seen) Urine Mucus Few (None Seen) Urine Glucose Normal mg/dL (Normal) Influenza Type A Antigen Negative (Negative) Influenza Type B Antigen Negative (Negative) Test 10/10/24 14:01 B-Type Natriuretic Peptide 82.79 pg/mL (0-100) Other Laboratory Tests 10/13/24 05:31 Brief Hx & Hospital Course: Aleisha Barlow is a 64-year-old female with past medical history of metastatic breast cancer who is currently undergoing treatment. Patient was hospitalized at [facility] for 12 days, she was discharged home on Thursday10/08/2024. While there she had bilateral pleural effusions. She underwent bilateral thoracentesis, the fluid reaccumulated so bilateral pig tail drains were placed. She states after the first thoracentesis she felt better, but after the drains were placed she still feels short of breath. While in the hospital she was diagnosed with a DVT in her right arm and started on blood thinners. She was discharged home with midodrine and home oxygen. Patient under went radiation therapy to her right breast and the breast cancer has spread to her left breast and bones. She is continuing treatment through Dr. Riaz Garces with oral medications. She came today due to increasing shortness of breath. She states she was previously able to ambulate to the bathroom, and these past couple of days she becomes so short of breath that she can't make it even with her home oxygen. When EMS arrived her oxygen sats were in the 80's with her oxygen on. Hospital course: Initial chest x-ray and ultrasound of the chest both revealed bilateral pleural effusion and multifocal airspace disease. - S/P left Pleurex drain of 900 mL , 700 ml - S/P Rt pleurex drain 700 ml Patient was treated with Med neb with albuterol and ipratropium q.4 p.r.n, IV ceftriaxone 1 g daily and IV azithromycin 500 mg daily for possible gram positive/ gram negative pneumonia .F/U chest x-ray revealed moderate right pneumothorax and CT chest without contrast revealed small right basilar pneumothorax. Today morning cxr showed resolved rt sided pneumothorax. Patient wanted to remove bilateral pleurex drain tubes and IR was consulted and recommended to remove the tubes from the place where it was placed. Patient was explained regarding this issue. Discharge plan was discussed with the patient and all questions were answered. Patient is being discharged to home and advice to continue home medications. Physical examination: General Appearance: Alert, Oriented X3, Cooperative, No acute distress HEENT: Atraumatic, PERRLA, EOMI, Mucous membrane moist/pink Respiratory: Clear to auscultation, Normal air movement Cardiovascular: Regular rate, Normal S1, Normal S2, No murmurs, no chest wall tenderness Abdominal: Normal bowel sounds, Soft, No tenderness, No hepatospenomegaly, No masses Extremities: No clubbing, No cyanosis, No edema, Normal pulses, No tenderness/swelling Skin: No rashes, No breakdown, No significant lesion Neuro: Normal gait, Normal speech, Strength at 5/5 X4 ext, Normal tone, Sensation intact, Cranial nerves 3-12 NL, Reflexes 2+ Psych/Mental Status: Mental status NL, Mood NL Discharge diagnosis: # Acute on chronic hypoxic respiratory failure likely due to bilateral malignant pleural effusion # S/P bilateral thoracentesis through pleurx drain tubes # Possible Gram-positive/ Gram-negative community-acquired pneumonia # Metastastatic breast cancer with possible metastasis to lung # Recurrent bilateral malignant pleural effusion, s/p bilateral pig tail drain tube placement. # History of DVT of right arm Consults/Reason for consult Pulmonology was consulted Operations or Procedures CHEST RADIOGRAPH Indication: sob Technique: Single frontal view of the chest was obtained COMPARISON: None FINDINGS: Lines and Tubes: Bilateral chest tubes in-situ. Lungs: Multifocal airspace disease. Pleura: Small bilateral pleural effusions. No pneumothorax. Cardiomediastinal contours: Unremarkable Bones: Unremarkable IMPRESSION: Multifocal airspace disease. CLINICAL HISTORY: 64 years old, Female; FLUID CHECK FOR POSSIBLE THORACENTESIS. TECHNIQUE: Grayscale sonographic imaging of the chest was performed to evaluate for pleural effusions. COMPARISON: None FINDINGS: Bilateral pleural effusions are seen on ultrasound. IMPRESSION: Bilateral pleural effusions are seen on ultrasound. EXAM: CT CHEST WITHOUT CONTRAST History: rule out pneumothorax Comparison Study: US CHEST ULTRASOUND on DOS: 10/11/24 TECHNIQUE: Multidetector CT of the chest was performed. Imaging was performed without IV contrast. Axial, coronal, and sagittal multiplanar reformats were obtained from the axial data set by the technologist. Radiation Dose : CTDI vol 17.82 mGy, DLP 657.54 mGy*cm. Findings: Lungs: Bilateral upper lobe solid and ground-glass nodular opacities. Bilateral lower lobe atelectasis. Pleura: Unremarkable Heart/Great vessels: No cardiomegaly or pericardial effusion. Mediastinum: Unremarkable Soft tissues/Bones: Mild multilevel degenerative changes of the thoracic spine. Bilateral posterior approach chest. The left chest tube terminates in the left lung base within the small to moderate-sized effusion. The right chest tube terminates in the right lung base within a small pleural effusion and a small right basilar pneumothorax. Bilateral breast skin thickening and nodular parenchyma. The partially visualized upper abdomen is within normal limits. Impression: 1. Bilateral upper lobe solid and ground-glass nodular opacities favored infectious/inflammatory etiology. 2. Right chest tube terminates in the right lung base with a small pleural effusion and a small right basilar pneumothorax. 3. Left chest tube terminates in the left lower lung base within a small to moderate effusion. 4. Bilateral breast skin thickening and nodular parenchyma. Recommend correlation with mammography CHEST RADIOGRAPH Indication: pneumothorax Technique: Single frontal view of the chest was obtained Comparison: XY CHEST XRAY 1 VIEW on DOS: 10/12/24, XY CHEST PORTABLE on DOS: 10/12/24, XY CHEST PORTABLE on DOS: 10/10/24 FINDINGS: Lines and Tubes: Bilateral PleurX catheters are present. Lungs: Increased interstitial opacities Pleura: Small bilateral pleural effusions No pneumothorax. Cardiomediastinal contours: Unremarkable Bones: No acute osseous abnormality. IMPRESSION: Significantly decreased pleural effusions. Stable pulmonary edema. Resolution of the pneumothorax. Condition at Discharge: Guarded Final Diagnosis/Problems List # Acute on chronic hypoxic respiratory failure likely due to bilateral malignant pleural effusion # S/P bilateral thoracentesis through pleurx drain tubes # Possible Gram-positive/ Gram-negative community-acquired pneumonia # Metastastatic breast cancer with possible metastasis to lung # Recurrent bilateral malignant pleural effusion, s/p bilateral pig tail drain tube placement. # History of DVT of right arm Discharge Disposition: Home Discharge Instruct/Medications Diet: Regular Activity: No Restrictions, As Tolerated Follow Up/Referral: Follow up with PCP in 1 week Medications: As per EMR Discharge Statement: "Patient was advised to return to the ER or call 911 if any headaches, dizziness, shortness of breath, chest pain, abdominal pain, bleeding, fevers, or worsening of medical condition. Patient was counseled about treatment plan, medications, possible side effects, patientverbalized understanding. All questions were answered to the best of my ability. This discharge took greater then 30 minutes in planning, reviewing documentation, counseling the patient, and discussing with other team members." ASSESSMENT ASSESSMENT Assessment # Acute on chronic hypoxic respiratory failure likely due to bilateral malignant pleural effusion # S/P bilateral thoracentesis through pleurx drain tubes # Possible Gram-positive/ Gram-negative community-acquired pneumonia # Metastastatic breast cancer with possible metastasis to lung # Recurrent bilateral malignant pleural effusion, s/p bilateral pig tail drain tube placement. # History of DVT of right arm Date of Service: Oct 13, 2024 Billing Provider: JESS FONSECA MD Common Visit Codes: 12891-GFD/OBS DISCH DAY >30min FREDI SEO RESIDENT Oct 13, 2024 11:06 JESS FONSECA MD Oct 17, 2024 00:25
--- NOTE | 2024-10-13 21:32 | DVHPN2 ---
Progress Note - Dictate Date Seen: Oct 13, 2024 Medical Necessity Reason Pt with a Central, PICC or Fol: No Subjective Patient seen and examined at bedside. Remains on supplemental oxygen Overnight events reviewed. vital signs Vital Sign Date Time Temp Pulse Resp B/P (MAP) Pulse Ox O2 Delivery O2 Flow Rate FiO2 10/13/24 13:00 98.5 101 18 111/63 (79) 97 98.5 10/13/24 10:05 Nasal Cannula* 3 32 Total Intake and Output 10/12/24 10/12/24 10/13/24 15:00 23:00 07:00 Intake Total 300 ml 950 ml 300 ml Output Total 100 ml Balance 300 ml 950 ml 200 ml objective Gen.: Patient lying in bed in no apparent distress. On supplemental oxygen. Head: Normocephalic, atraumatic. Eyes: EOMI/PERRLA. Ears: Normal hearing. Normal anatomy. Neck/trachea: Trachea midline, supple. Nose: Normal external anatomy. Mouth: Moist mucous membranes. Chest: Decreased air entry bilaterally. No wheezing or rhonchi. Cardiovascular: Positive S1, positive S2. Regular rate and rhythm. Abdomen: Positive bowel sounds in all 4 quadrants. Soft, non-tender, non- distended. : Deferred. Rectal: Deferred. Skin: Warm, dry. Intact. Extremities: 2+ radial pulses bilaterally. No lower extremity edema. Neuro: Awake, alert, oriented x3. No gross motor or sensory deficits. Cranial nerves II through XII intact. Gait not assessed. laboratory and microbiology Laboratory Tests 10/13/24 05:31 Test 10/13/24 05:31 Range/Units Serum Glucose 107 H 74-106 mg/dL Assessment/Plan Impression: Acute hypoxic respiratory failure Dependence on supplemental oxygen Recurrent bilateral malignant pleural effusions Atelectasis Possible pneumonia Metastatic breast cancer History of DVT Events: Remains on supplemental oxygen, 3 LPM NC Taper O2 as tolerated Drained left PleurX catheter today for 700 mL kiera fluid. Recommend outpatient removal of PleurX catheters. IR recommendations appreciated. Drained right PleurX catheter with 700 mL output yesterday (10/12/24) Drained left PleurX catheter w/ 900 mL output on 10/11/24 CXR reviewed; demonstrates significantly decreased pleural effusions. Stable pulmonary edema. Pneumothorax resolved. PleurX catheters in place. Continue antibiotics Incentive spirometry On Eliquis for DVT prophylaxis. Labs and imaging reviewed. Rest of plan as noted below. Plan: Supplemental oxygen Titrate to keep O2 sats above 92%. CXR on 10/10/24 reveals multifocal airspace disease, small bilateral pleural effusions. No pneumothorax. Chest ultrasound demonstrated bilateral pleural effusions. S/p bilateral chest tubes. Drain PleurX catheters on every other day schedule. Continue antibiotics Incentive spirometry Recommend outpatient removal of PleurX catheters. Monitor renal function. Monitor electrolytes. Supplement as necessary. Monitor ins and outs. DVT prophylaxis. Prognosis: Poor given patient's multiple co-morbidities. Rest of plan per hospitalist and other consultants. Thank you, Dr. Stearns, for allowing me to participate in this patient's care. Further recommendations will depend on the patient's clinical course. Please do not hesitate to contact me if you have any questions or concerns. This medical document was created using an electronic medical record system with [employer] dictation system. Although these documentations are being carefully reviewed, there may still be some phonetic and typographical changes. The errors are purely typographical, due to imperfection on the software program, and do not reflect any compromise in the patient's medical care. Plan discussed with: Patient, Other (NADEGE Rodriguez) LOPEZ BRAXTON MD Oct 13, 2024 21:32
== END 2024-10-13 17:00 | disposition home or self-care (01) | DRG 133 ==
LOC: EDBD 12:20 → ER 12:20 → OVERFLOW 17:23 → TELE-EAST 17:29 → EAST 10-12 18:04
PROVIDERS: ADMIT Student in an Organized Health Care Education/Training Program; ATTEND Student in an Organized Health Care Education/Training Program
PROC: 05HF33Z Insertion of Infusion Device into Left Cephalic Vein, Percutaneous Approach (ICD-10-PCS; principal; 2024-10-10)
PROC: B54NZZA Ultrasonography of Left Upper Extremity Veins, Guidance (ICD-10-PCS; 2024-10-10)
DX: J96.21 Acute and chronic respiratory failure with hypoxia (principal); J15.69 Pneumonia due to other Gram-negative bacteria; C79.51 Secondary malignant neoplasm of bone; J15.9 Unspecified bacterial pneumonia; C50.911 Malignant neoplasm of unspecified site of right female breast; C50.912 Malignant neoplasm of unspecified site of left female breast; J91.0 Malignant pleural effusion; E05.90 Thyrotoxicosis, unspecified without thyrotoxic crisis or storm; Z99.81 Dependence on supplemental oxygen; Z86.718 Personal history of other venous thrombosis and embolism; Z98.51 Tubal ligation status; Z98.891 History of uterine scar from previous surgery; Z82.49 Family history of ischemic heart disease and other diseases of the circulatory system; Z82.5 Family history of asthma and other chronic lower respiratory diseases; Z80.0 Family history of malignant neoplasm of digestive organs; Z79.82 Long term (current) use of aspirin; Z79.899 Other long term (current) drug therapy; C78.00 Secondary malignant neoplasm of unspecified lung
CPT/HCPCS: 36415; 71045; 71250; 76604; 80048; 80053; 81001; 83880; 85025; 85610; 85730; 86141; 87081; 87804; 93005; 94640; 99291; G0378; J2405